=== PATIENT | female | born 1940 | race African-American/Black ===

== ENCOUNTER 2018-06-16 13:52 | Emergency (ER) | payer OTHER ==
--- NOTE | 2018-06-16 14:26 | EDPHYS ---
Physician Documentation [facility] Name: Kira Urrutia Age: 77 yrs Sex: Female : 1940 Arrival Date: 06/16/2018 Time: 13:55 Bed 13 Private MD: ED Physician Sg Stearns HPI: 06/16 14:25 This 77 yrs old Black Female presents to ER via Ambulatory with complaints of Rash. pm1 14:25 The patient's rash thought to be caused by an unknown cause. The rash is located on the pm1 mouth and neck. The rash can be described as itchy and raised. Onset: The symptoms/episode began/occurred 4 day(s) ago. Associated signs and symptoms: Pertinent positives: itching, swelling of lips, Pertinent negatives: burning sensation, difficulty breathing, fever, Pain swelling of throat, swelling of tongue, vomiting, wheezing. Severity of symptoms: in the emergency department the symptoms have improved. The patient has not experienced similar symptoms in the past. The patient has not recently seen a physician. Patient with onset of swelling to lips and itching to sides of neck and face on Wednesday. took benadryl and the swelling to her lips improved. Itching sensation to sides of face and neck have continued. Historical: - Allergies: 14:03 No Known Allergies; aa5 - Home Meds: 14:03 Nifedipine ER Oral 90 mg daily [Active]; lisinopril 5 mg Oral tab once daily [Active]; aa5 simvastatin 40 mg Oral tab once daily [Active]; aspirin 81 mg Oral TbEC 1 tab once daily [Active]; Zyrtec 10 mg Oral cap as needed [Active]; centrum silver vitamin [Active]; Os-Williams 500 + D3 oral oral [Active]; - PMHx: 14:03 Hypertension; Hyperlipidemia; Endometriosis; aa5 - PSHx: 14:03 colon resection with possible appendectomy; aa5 - Immunization history:: Flu vaccine is up to date. - Social history:: Smoking status: Patient/guardian denies using tobacco. - Ebola Screening: : No symptoms or risks identified at this time. ROS: 14:25 Constitutional: Negative for fever, chills, and weight loss, Eyes: Negative for injury, pm1 pain, redness, and discharge, ENT: Negative for injury, pain, and discharge, Neck: Negative for injury, pain, and swelling, Cardiovascular: Negative for chest pain, palpitations, and edema, Respiratory: Negative for shortness of breath, cough, wheezing, and pleuritic chest pain, Abdomen/GI: Negative for abdominal pain, nausea, vomiting, diarrhea, and constipation, Back: Negative for injury and pain, : Negative for injury, bleeding, discharge, and swelling, MS/Extremity: Negative for injury and deformity. 14:25 Neuro: Negative for headache, weakness, numbness, tingling, and seizure. 14:25 Skin: Positive for rash, of the face and neck. Exam: 14:25 Constitutional: This is a well developed, well nourished patient who is awake, alert, pm1 and in no acute distress. Head/Face: Normocephalic, atraumatic. Eyes: Pupils equal round and reactive to light, extra-ocular motions intact. Lids and lashes normal. Conjunctiva and sclera are non-icteric and not injected. Cornea within normal limits. Periorbital areas with no swelling, redness, or edema. ENT: Nares patent. No nasal discharge, no septal abnormalities noted. Tympanic membranes are normal and external auditory canals are clear. Oropharynx with no redness, swelling, or masses, exudates, or evidence of obstruction, uvula midline. Mucous membranes moist. Neck: Trachea midline, no thyromegaly or masses palpated, and no cervical lymphadenopathy. Supple, full range of motion without nuchal rigidity, or vertebral point tenderness. No Meningismus. Chest/axilla: Normal chest wall appearance and motion. Nontender with no deformity. No lesions are appreciated. Cardiovascular: Regular rate and rhythm with a normal S1 and S2. No gallops, murmurs, or rubs. Normal PMI, no JVD. No pulse deficits. Respiratory: Lungs have equal breath sounds bilaterally, clear to auscultation and percussion. No rales, rhonchi or wheezes noted. No increased work of breathing, no retractions or nasal flaring. Abdomen/GI: Soft, non-tender, with normal bowel sounds. No distension or tympany. No guarding or rebound. No evidence of tenderness throughout. Back: No spinal tenderness. No costovertebral tenderness. Full range of motion. 14:25 MS/ Extremity: Pulses equal, no cyanosis. Neurovascular intact. Full, normal range of motion. 14:25 Skin: Appearance: normal except for affected area, No current rash visible to neck or face. No lip swelling present. 14:25 Neuro: Orientation: is normal, Motor: is normal, moves all fours. Vital Signs: 14:03 BP 160 / 78; Pulse 81; Resp 16 S; Temp 99.1(TE); Pulse Ox 98% on R/A; Weight 82.55 kg aa5 (R); Height 5 ft. 5 in. (165.10 cm) (R); Pain 0/10; 14:03 Body Mass Index 30.29 (82.55 kg, 165.10 cm) aa5 MDM: 14:09 Patient medically screened. pm1 14:25 Data reviewed: vital signs. Data interpreted: Pulse oximetry: on room air is 98 %. pm1 Interpretation: normal. Counseling: I had a detailed discussion with the patient and/or guardian regarding:. 14:25 Counseling: I had a detailed discussion with the patient and/or guardian regarding: the pm1 historical points, exam findings, and any diagnostic results supporting the discharge/admit diagnosis, the need for outpatient follow up, an allergy/customer engineering specialist, a family practitioner, to return to the emergency department if symptoms worsen or persist or if there are any questions or concerns that arise at home. Administered Medications: 14:32 Drug: Pepcid 20 mg Route: PO; tw2 14:58 Follow up: Response: No adverse reaction tw2 14:32 Drug: predniSONE 60 mg Route: PO; tw2 14:58 Follow up: Response: No adverse reaction tw2 Disposition: 06/17 07:20 Co-signature as Attending Physician, Sg Stearns MD I agree with the assessment and kdr plan of care. Disposition: 06/16/18 14:26 Discharged to Home. Impression: Rash and other nonspecific skin eruption. - Condition is Stable. - Discharge Instructions: Rash. - Prescriptions for Benadryl 25 mg Oral Capsule - take 1 capsule by ORAL route every 6 hours As needed; 30 tablet. Pepcid 20 mg Oral Tablet - take 1 tablet by ORAL route every 12 hours for 10 days; 20 tablet. Medrol (Marcell) 4 mg Oral Tablets, Dose Pack - take 1 tablet by ORAL route as directed - follow package instructions; 1 packet. - Medication Reconciliation Form, Thank You Letter, Antibiotic Education, Prescription Opioid Use form. - Follow up: Emergency Department; When: As needed; Reason: Worsening of condition. Follow up: Private Physician; When: 2 - 3 days; Reason: Recheck today's complaints, Continuance of care, Re-evaluation by your physician. - Problem is new. - Symptoms have improved. Signatures: Sg Stearns MD MD [facility] Ami Pardo RN RN aa5 Daniel Garay NP [employer] MAINTENANCE SUPERVISOR pm1 Ni Welsh RN RN tw2 Corrections: (The following items were deleted from the chart) 06/16 14:59 14:26 06/16/2018 14:26 Discharged to Home. Impression: Rash and other nonspecific skin tw2 eruption. Condition is Stable. Forms are Medication Reconciliation Form, Thank You Letter, Antibiotic Education, Prescription Opioid Use. Follow up: Emergency Department; When: As needed; Reason: Worsening of condition. Follow up: Private Physician; When: 2 - 3 days; Reason: Recheck today's complaints, Continuance of care, Re-evaluation by your physician. Problem is new. Symptoms have improved. pm1
--- NOTE | 2018-06-16 14:26 | ER ---
Nurse's Notes [facility] Name: Kira Urrutia Age: 77 yrs Sex: Female : 1940 Arrival Date: 06/16/2018 Time: 13:55 Bed 13 Private MD: Diagnosis: Rash and other nonspecific skin eruption Presentation: 06/16 13:59 Presenting complaint: Patient states: rash to face and torso that began Wednesday. Pt aa5 reports itchiness. Transition of care: patient was not received from another setting of care. Onset of symptoms was May 2018. Risk Assessment: Do you want to hurt yourself or someone else? Patient reports no desire to harm self or others. Initial Sepsis Screen: Does the patient meet any 2 criteria? No. Patient's initial sepsis screen is negative. Does the patient have a suspected source of infection? No. Patient's initial sepsis screen is negative. Care prior to arrival: None. 13:59 Method Of Arrival: Ambulatory aa5 13:59 Acuity: MAAME 4 aa5 Triage Assessment: 14:59 General: Behavior is calm, cooperative, appropriate for age. tw2 Historical: - Allergies: 14:03 No Known Allergies; aa5 - Home Meds: 14:03 Nifedipine ER Oral 90 mg daily [Active]; lisinopril 5 mg Oral tab once daily [Active]; aa5 simvastatin 40 mg Oral tab once daily [Active]; aspirin 81 mg Oral TbEC 1 tab once daily [Active]; Zyrtec 10 mg Oral cap as needed [Active]; centrum silver vitamin [Active]; Os-Williams 500 + D3 oral oral [Active]; - PMHx: 14:03 Hypertension; Hyperlipidemia; Endometriosis; aa5 - PSHx: 14:03 colon resection with possible appendectomy; aa5 - Immunization history:: Flu vaccine is up to date. - Social history:: Smoking status: Patient/guardian denies using tobacco. - Ebola Screening: : No symptoms or risks identified at this time. Screenin:15 Abuse screen: Denies threats or abuse. Nutritional screening: No deficits noted. tw2 Tuberculosis screening: No symptoms or risk factors identified. Fall Risk Secondary diagnosis (15 points) impaired mobility. Assessment: 14:20 General: Appears in no apparent distress. Pain: Denies pain. Neuro: Level of tw2 Consciousness is awake, alert, obeys commands, Oriented to person, place, time, situation. Cardiovascular: Capillary refill < 3 seconds Patient's skin is warm and dry. Respiratory: Airway is patent Respiratory effort is even, unlabored, Respiratory pattern is regular, symmetrical. GI: No signs and/or symptoms were reported involving the gastrointestinal system. : No signs and/or symptoms were reported regarding the genitourinary system. EENT: No signs and/or symptoms were reported regarding the EENT system. Derm: Reports increased itching, to face and torso. Musculoskeletal: No signs and/or symptoms reported regarding the musculoskeletal system. Circulation, motion, and sensation intact. Range of motion: intact in all extremities. 14:59 Reassessment: Patient appears in no apparent distress at this time. No changes from tw2 previously documented assessment. Patient and/or family updated on plan of care and expected duration. Pain level reassessed. Patient is alert, oriented x 3, equal unlabored respirations, skin warm/dry/pink. Vital Signs: 14:03 BP 160 / 78; Pulse 81; Resp 16 S; Temp 99.1(TE); Pulse Ox 98% on R/A; Weight 82.55 kg aa5 (R); Height 5 ft. 5 in. (165.10 cm) (R); Pain 0/10; 14:03 Body Mass Index 30.29 (82.55 kg, 165.10 cm) aa5 ED Course: 13:55 Patient arrived in ED. mr 13:59 Arm band placed on. aa5 14:00 Triage completed. aa5 14:09 [facility] Gar[facility] pm1 14:09 Sg Stearns MD is Attending Physician. pm1 14:15 Ni Welsh RN is Primary Nurse. tw2 14:15 Bed in low position. Call light in reach. Pulse ox on. NIBP on. tw2 14:58 No provider procedures requiring assistance completed. Patient did not have IV access tw2 during this emergency room visit. Administered Medications: 14:32 Drug: Pepcid 20 mg Route: PO; tw2 14:58 Follow up: Response: No adverse reaction tw2 14:32 Drug: predniSONE 60 mg Route: PO; tw2 14:58 Follow up: Response: No adverse reaction tw2 Outcome: 14:26 Discharge ordered by . pm1 14:58 Discharged to home ambulatory. tw2 14:58 Condition: stable 14:58 Discharge instructions given to patient, Instructed on discharge instructions, follow up and referral plans. medication usage, Demonstrated understanding of instructions, follow-up care, medications, Prescriptions given X 3. 14:59 Patient left the ED. tw2 Signatures: Isidra Brooks mr Prado, Ami, RN RN aa5 Daniel Garay, JOSE AMMONIUM NITRATE CRYSTALLIZER pm1 Ni Welsh RN RN tw2
[2018-06-16] MEDS ORDERED: predniSONE 20 MG TAB ONE (14:40)
[2018-06-16] MEDS ORDERED: FAMOTIDINE 20 MG TAB ONE (14:40)
--- OUTSIDE RECORDS SUMMARY | 2018-06-16 14:58 | XMS REPORT | Clinical Summary ---
:1940 Author Organization [facility] Address [address] [place] [address] Care Team Providers Name Role Phone Narcisa Morris MD Primary Care Provider Allergies Active Allergy Reactions Severity Noted Date Comments No Known Drug Allergies 08/27/2015 Medications Medication Sig Dispensed Refills Start Date End Date Status aspirin (ASPIRIN LOW Take 1 0 12/31/2011 Active DOSE) 81 MG enteric capsule by coated tablet mouth daily. wb-cwi-GI-Ca-Fe-lyco Take 1 tablet 0 12/31/2011 Active pen-lutein by mouth 0.4-162-18 mg tablet daily. calcium Take 1 tablet 0 Active carbonate-vitamin D3 by mouth (CALCIUM 500 + D) daily. 500 mg-200 unit per tablet cetirizine (ZyrTEC) Take 1 tablet 90 tablet 3 03/18/2017 Active 10 MG tablet (10 mg total) by mouth daily. acetaminophen Take 325 mg 0 Active (TYLENOL) 325 MG by mouth tablet every 6 (six) hours as needed for fever. lisinopril Take 1 tablet 90 tablet 1 02/23/2018 Active (PRINIVIL,ZESTRIL) 5 (5 mg total) mg tablet by mouth daily. NIFEdipine CC Take 1 tablet 90 tablet 1 02/23/2018 Active (ADALAT CC) 90 MG 24 (90 mg total) hr tablet by mouth daily. simvastatin (ZOCOR) Take 1 tablet 90 tablet 1 02/23/2018 Active 40 MG tablet (40 mg total) by mouth daily. simvastatin (ZOCOR) Take 1 tablet 90 tablet 1 01/04/2017 06/28/2017 Discontinued 40 MG tablet (40 mg total) by mouth daily. NIFEdipine CC Take 1 tablet 90 tablet 1 01/04/2017 06/28/2017 Discontinued (ADALAT CC) 90 MG 24 (90 mg total) hr tablet by mouth daily. lisinopril Take 1 tablet 90 tablet 1 01/04/2017 06/28/2017 Discontinued (PRINIVIL,ZESTRIL) 5 (5 mg total) mg tablet by mouth daily. lisinopril Take 1 tablet 90 tablet 1 06/28/2017 02/23/2018 Discontinued (PRINIVIL,ZESTRIL) 5 (5 mg total) mg tablet by mouth daily. simvastatin (ZOCOR) Take 1 tablet 90 tablet 1 06/28/2017 02/23/2018 Discontinued 40 MG tablet (40 mg total) by mouth daily. NIFEdipine CC Take 1 tablet 90 tablet 1 06/28/2017 02/23/2018 Discontinued (ADALAT CC) 90 MG 24 (90 mg total) hr tablet by mouth daily. Active Problems Problem Noted Date TMJ (dislocation of temporomandibular joint) 05/07/2017 Overview: Patient is still having significant pain. She is having some ear pain. Decreased ROM of her jaw. She was given naproxen for 10 days--took it scheduled. Helped her knees, but not as much the jaw. Localized edema 01/04/2017 Overview: Patient is noting that she has had some increased swelling--thinks it may be related to salt intake. Improves overnight Last Assessment & Plan: Likely diet related. Watch salt and simple carbs. Epigastric fullness 01/15/2016 Last Assessment & Plan: No weight loss or early satiety. It appears to be more related to her symptoms of being anxious. However given the iron deficiency anemia, we will evaluate with EGD. Iron deficiency anemia 09/30/2015 Last Assessment & Plan: Patient with low ferritin and % saturation. She has been evaluated by hematology and there is a concern for ongoing blood loss. She doesn't have overt GI bleeding. She had a recent colonoscopy which did n't show evidence of bleeding. She hasn't had EGD. Plan for EGD with duodenal biopsy to r/o upper source of GI bleeding and celiac disease. Her hemoglobin has improved on PO iron supplement. She didn't require blood transfusion. Chronic kidney disease, stage III (moderate) 09/09/2015 Overview: Last eGFR was 62 Irregular heart rhythm 09/09/2015 Impaired glucose tolerance 09/09/2015 Seasonal allergies 09/09/2015 Osteoarthritis of knee 04/17/2013 Essential hypertension 01/14/2012 Overview: Patient is tolerating the medications well; No chest pain, shortness of breath, headache, blurry vision, or weakness. Not exercising as much. Last Assessment & Plan: Hypertension is at goal. Continue current treatment regimen. Blood pressure will be reassessed at the next regular appointment. HLD (hyperlipidemia) 12/31/2011 Encounters Date Type Specialty Care Team Description 06/15/2018 Hospital Radiology Narcisa Morris Breast cancer screening Encounter MD Ed 05/18/2018 Telephone Access Gretel Freeman Breast cancer screening MA (Primary Dx) 03/11/2018 Telephone Internal Medicine Narcisa Morris MD 02/22/2018 Telephone Internal Medicine Narcisa Morris MD 02/15/2018 Orders Only Internal Medicine Narcisa Morris Impaired glucose tolerance (Primary Dx); MD Ed Essential hypertension; Chronic kidney disease, stage III (moderate) (HCC) 02/14/2018 Telephone Internal Medicine Narcisa Morris MD 02/10/2018 Refill Internal Medicine Narcisa Morris IFG (impaired fasting glucose) (Primary Dx); MD Ed Essential hypertension; Hyperlipidemia, unspecified hyperlipidemia type 01/27/2018 Office Visit Internal Medicine Narcisa Morris Routine general medical examination at a health care facility (Primary Dx); MD Ed Need for influenza vaccination; Hyperlipidemia, unspecified hyperlipidemia type; Impaired glucose tolerance; Osteoporosis screening; Post-menopausal; Nail problem; Essential hypertension 08/26/2017 Telephone Internal Medicine Narcisa Morris Dislocation of MD Ed temporomandibular joint, sequela (Primary Dx) 06/28/2017 Refill Internal Medicine Narcisa Morris MD after 06/15/2017 Immunizations Name Dates Previously Given Next Due DTaP 03/29/2006 FLUCELVAX QUAD PF (0.5mL syringe) 04/08/2015 FLUZONE HIGH-DOSE PF 01/27/2018, 01/04/2017 Influenza (IM) Preservative Free 08/17/2014 Influenza Split 12/31/2011 Influenza Trivalent 12/27/2013, 02/12/2010, 01/23/2009 Pneumococcal Polysaccharide 04/14/2012, 01/23/2009 Family History Medical History Relation Name Comments Throat cancer Brother Liver cancer Brother Cirrhosis Brother Other Brother Hypertension Father Diabetes on dad's side Hypertension Mother Colon cancer Paternal Aunt Relation Name Status Comments Brother Brother Brother Brother Father Mother Paternal Aunt Sister Sister Sister Alive Social History Tobacco Use Types Packs/Day Years Used Date Never Smoker Smokeless Tobacco: Never Used Tobacco Cessation: Counseling Given: No Alcohol Use Drinks/Week oz/Week Comments No Sex Assigned at Date Recorded Not on file Job Start Date Occupation Industry Not on file Not on file Not on file Travel History Travel Start Travel End No recent travel history available. Last Filed Vital Signs Vital Sign Reading Time Taken Blood Pressure 148/81 01/27/2018 10:25 AM CDT Pulse 76 01/27/2018 9:58 AM CDT Temperature 36.6 C (97.9 F) 01/27/2018 9:58 AM CDT Respiratory Rate - - Oxygen Saturation 99% 01/27/2018 9:58 AM CDT Inhaled Oxygen Concentration - - Weight 82.3 kg (181 lb 6.4 oz) 01/27/2018 9:58 AM CDT Height 165.1 cm (5' 5") 01/27/2018 9:58 AM CDT Body Mass Index 30.19 01/27/2018 9:58 AM CDT Plan of Treatment Health Maintenance Due Date Last Done Comments SHINGLES VACCINES (#1) 08/12/1989 65+ PNEUMOCOCCAL VACCINE Completed 04/14/2012, 01/23/2009 PNEUMOCOCCAL POLYSACCHARIDE VACCINE Completed 04/14/2012, 01/23/2009 AGE 65 AND OVER INFLUENZA VACCINE Completed 01/27/2018, 01/04/2017, 04/08/2015, Additional history exists Procedures Procedure Name Priority Date/Time Associated Diagnosis Comments MAMMO BREAST SCREEN Routine 06/15/2018 11:24 Breast cancer Results for this TOMOSYNTHESIS AM CDT screening procedure are in BILATERAL the results section. BONE DENSITY Routine 03/14/2018 11:23 Osteoporosis Results for this AM TUBING MACHINE TENDER screening procedure are in Post-menopausal the results section. URINALYSIS, AUTOMATED Routine 02/15/2018 10:10 Essential Results for this WITH MICROSCOPY AM TUBING MACHINE TENDER hypertension procedure are in Impaired glucose the results tolerance section. Chronic kidney disease, stage III (moderate) (HCC) THYROID STIMULATING Routine 02/15/2018 10:10 Essential Results for this HORMONE AM TUBING MACHINE TENDER hypertension procedure are in Impaired glucose the results tolerance section. Chronic kidney disease, stage III (moderate) (HCC) LIPID PANEL Routine 02/15/2018 10:10 Essential Results for this AM TUBING MACHINE TENDER hypertension procedure are in Impaired glucose the results tolerance section. Chronic kidney disease, stage III (moderate) (HCC) COMPREHENSIVE Routine 02/15/2018 10:10 Essential Results for this METABOLIC PANEL AM TUBING MACHINE TENDER hypertension procedure are in Impaired glucose the results tolerance section. Chronic kidney disease, stage III (moderate) (HCC) CBC WITH PLATELET AND Routine 02/15/2018 10:10 Essential Results for this DIFFERENTIAL AM TUBING MACHINE TENDER hypertension procedure are in Impaired glucose the results tolerance section. Chronic kidney disease, stage III (moderate) (HCC) ECG 12-LEAD Routine 01/27/2018 10:11 Essential Results for this AM CDT hypertension procedure are in the results section. after 06/15/2017 Results Mammo Breast Screen Tomosynthesis Bilateral (06/15/2018 11:24 AM CDT) Narrative Performed At PROCEDURE: [facility] MAMMO BREAST SCREEN TOMOSYNTHESIS BILATERAL Computer-assisted detection was utilized for the interpretation of this exam. COMPARISON: 2017, 201601/16/2016 TECHNIQUE: Bilateral digital screening mammogram with tomosynthesis was performedand interpreted using computer-assisted detection. CLINICAL HISTORY: The patient has no current palpable breast complaints. FINDINGS: Bilateral mammogram demonstrates the breast parenchyma to beheterogeneously dense, which could obscure the detection of small masses. LEFT:No specific features of malignancy. RIGHT: No specific features of malignancy. IMPRESSION: BI-RADS Category 2: Benign. Recommend comparison with physical exam and annual screening mammography. There has been no significant interval change from prior studies. This facility is accredited by [employer] for Mammography. A negative x-ray report should not delay biopsy if a dominant or clinically suspicious mass is present. Not all cancers are identified by x-ray. [id number] Performing Organization Address City/State/Zipcode Phone Number [facility] [address] [place] [address] Bone Density (03/14/2018 11:23 AM TUBING MACHINE TENDER) Narrative Performed At EXAMINATION:BONE DENSITY [facility] CLINICAL HISTORY:Z13.820 Encounter for screening for osteoporosis, Z78.0 Asymptomatic menopausal state, osteoporosis screeningpost menopausal COMPARISON:None. The results of this study expressed as bone mineral density (BMD) were as follows: AP spine (L1-L4) *BMD: 0.923 g/cm2 *T-Score: -2.2 *Z-score: -1.6 *Percent change: No prior exam Dual Femur (Total Mean): *BMD: 0.909 g/cm2 *T-Score: -0.8 *Z-score: -0.2 *Percent change: No prior exam Left femoral neck: *BMD: 0.925 g/cm2 *T-Score: -0.8 *Z-score: 0.0 Right femoral neck: *BMD: 0.903 g/cm2 *T-Score: -1.0 *Z-score: -0.2 Dual femur FRAX: *Risk factors: None *10-year probability of fracture: 1.Major osteoporotic: 4.8% 2.Hip: 0.8% 3.Based on dual femur right neck BMD IMPRESSION:Osteopenia of the AP lumbar spine. Normal BMD of the total mean dual femur and right and left femoral neck. [facility]-[id number] A copy of this scans including a report detailing these results will follow. Note: The world health organization (WHO) has classified the patient's T-score as follows: Above (-1) as normal (-1) to (-2.5) as low (osteopenia) Below (-2.5) as abnormally low (osteoporosis, increased fracture risk) Procedure Note [facility], Radiology Results Incoming - 03/14/2018 1:25 PM TUBING MACHINE TENDER EXAMINATION: BONE DENSITY CLINICAL HISTORY: Z13.820 Encounter for screening for osteoporosis, Z78.0 Asymptomatic menopausal state, osteoporosis screening post menopausal COMPARISON: None. The results of this study expressed as bone mineral density (BMD) were as follows: AP spine (L1-L4) * BMD: 0.923 g/cm2 * T-Score: -2.2 * Z-score: -1.6 * Percent change: No prior exam Dual Femur (Total Mean): * BMD: 0.909 g/cm2 * T-Score: -0.8 * Z-score: -0.2 * Percent change: No prior exam Left femoral neck: * BMD: 0.925 g/cm2 * T-Score: -0.8 * Z-score: 0.0 Right femoral neck: * BMD: 0.903 g/cm2 * T-Score: -1.0 * Z-score: -0.2 Dual femur FRAX: * Risk factors: None * 10-year probability of fracture: 1. Major osteoporotic: 4.8% 2. Hip: 0.8% 3. Based on dual femur right neck BMD IMPRESSION: Osteopenia of the AP lumbar spine. Normal BMD of the total mean dual femur and right and left femoral neck. [id number] A copy of this scans including a report detailing these results will follow. Note: The world health organization (WHO) has classified the patient's T-score as follows: Above (-1) as normal (-1) to (-2.5) as low (osteopenia) Below (-2.5) as abnormally low (osteoporosis, increased fracture risk) Performing Organization Address City/State/Zipcode Phone Number [facility] [address] [place] [address] Urinalysis, automated with microscopy (02/15/2018 10:10 AM TUBING MACHINE TENDER) Color, UA DARK YELLOW YELLOW [facility] [place] Appearance HAZY (A) CLEAR [facility] [place] Specific gravity, urine 1.029 1.001 - 1.035 [facility] [place] pH, urine 6.0 5.0 - 8.0 [facility] [place] Glucose, urine NEGATIVE NEGATIVE [facility] [place] Bilirubin, UA NEGATIVE NEGATIVE [facility] [place] Ketones, UA TRACE (A) NEGATIVE [facility] [place] Occult blood, urine NEGATIVE NEGATIVE [facility] [place] Protein, UA 2+ (A) NEGATIVE [facility] [place] Nitrite, UA NEGATIVE NEGATIVE [facility] [place] Leukocyte esterase, UA TRACE (A) NEGATIVE [facility] [place] WBC, UA 0-5 < OR=5 /HPF [facility] [place] RBC, UA 0-2 < OR=2 /HPF [facility] [place] Squamous epithelial 6-10 (A) < OR=5 /HPF [facility] [place] cells, UA Bacteria, UA FEW (A) NONE SEEN /HPF [facility] [place] Calcium oxalate FEW NONE OR FEW /HPF [facility] [place] crystals, UA Hyaline casts, UA NONE SEEN NONE SEEN /LPF [facility] [place] Comment FEW MUCOUS THREADS [facility] [place] Specimen Urine Narrative Performed At FASTING:YES [facility] FASTING: YES Resulting Agency Comment Performing Organization Information: Site ID: [id number] Name: [facility] Address: [address] [place] [phone] Director: Monique Fatima Performing Organization Address City/[facility]/Zipcode Phone Number [phone] [address] CBC with platelet and differential (02/15/2018 10:10 AM TUBING MACHINE TENDER) WBC 3.5 (L) 3.8 - 10.8 Thousand/uL [facility] [place] RBC 3.72 (L) 3.80 - 5.10 Million/uL [facility] [place] HGB 11.9 11.7 - 15.5 g/dL [facility] [place] HCT 35.3 35.0 - 45.0 % [facility] [place] MCV 94.9 80.0 - 100.0 fL [facility] [place] MCH 32.0 27.0 - 33.0 pg [facility] [place] MCHC 33.7 32.0 - 36.0 g/dL [facility] [place] RDW 13.1 11.0 - 15.0 % [facility] [place] Platelet count 263 140 - 400 Thousand/uL [facility] [place] MPV 11.4 7.5 - 12.5 fL [facility] [place] Neutrophils, absolute 1,939 1,500 - 7,800 cells/uL [facility] [place] Lymphocytes, absolute 1,057 850 - 3,900 cells/uL [facility] [place] Monocytes, absolute 322 200 - 950 cells/uL [facility] [place] Eosinophils, absolute 112 15 - 500 cells/uL [facility] [place] Basophils, absolute 70 0 - 200 cells/uL [facility] [place] Neutrophils 55.4 % [facility] [place] Lymphocytes 30.2 % [facility] [place] Monocytes 9.2 % [employer] [facility][1] Eosinophils 3.2 % [facility] [place] Basophils + RC 2.0 % [facility] [place] Specimen Blood Narrative Performed At FASTING:YES [facility] FASTING: YES Resulting Agency Comment Performing Organization Information: Site ID: [id number] Name: [facility] Address: [address] [place] [phone] Director: Monique Fatima Performing Organization Address City/[facility]/Zipcode Phone Number [phone] [address] Thyroid stimulating hormone (02/15/2018 10:10 AM TUBING MACHINE TENDER) TSH 2.07 0.40 - 4.50 mIU/L [facility] [place] Specimen Blood Narrative Performed At FASTING:YES [facility] FASTING: YES Resulting Agency Comment Performing Organization Information: Site ID: [id number] Name: [facility] Address: [address] [place] [phone] Director: Moinque Fatima Performing Organization Address [facility] Phone Number [phone] [address] Lipid panel (02/15/2018 10:10 AM TUBING MACHINE TENDER) Cholesterol, total 171 <200 mg/dL [facility] [place] HDL cholesterol 86 >50 mg/dL [facility] [employer] [facility][1] Triglycerides 65 <150 mg/dL [employer] [facility][1] LDL cholesterol 71 mg/dL (calc) [employer] [facility] calculated Comment: [place] Reference range: <100 Desirable range <100 mg/dL for primary prevention; <70 mg/dL for patients with CHD or diabetic patients with > or=2 CHD risk factors. LDL-C is now calculated using the Sandrita calculation, which is a validated novel method providing better accuracy than the Friedewald equation in the estimation of LDL-C. Jose SS et al. REBECCA. 2013;310(19): 9296-0335 (http://education.[employer]/faq/NCY404) Cholesterol/HDL ratio 2.0 <5.0 (calc) [employer] [facility][1] Non-HDL cholesterol 85 <130 mg/dL [facility] Comment: (calc) [place] For patients with diabetes plus 1 major ASCVD risk factor, treating to a non-HDL-C goal of <100 mg/dL (LDL-C of <70 mg/dL) is considered a therapeutic option. Specimen Blood Narrative Performed At FASTING:YES [facility] FASTING: YES Resulting Agency Comment Performing Organization Information: Site ID: [id number] Name: [facility] Address: [address] [place] [phone] Director: Monique Fatima Performing Organization Address [facility] Phone Number [phone] [address] Comprehensive metabolic panel (02/15/2018 10:10 AM TUBING MACHINE TENDER) Glucose 91 65 - 99 mg/dL [facility] Comment: [place] Fasting reference interval BUN, whole blood 17 7 - 25 mg/dL [facility] [place] Creatinine 0.93 0.60 - 0.93 [facility] Comment: mg/dL [place] For patients >49 years of age, the reference limit for Creatinine is approximately 13% higher for people identified as -Greek. EGFR Non-Afr. Greek 59 (L) > OR=60 [facility] mL/min/1.73m2 [place] EGFR 68 > OR=60 [facility] mL/min/1.73m2 [place] BUN/creatinine ratio NOT APPLICABLE 6 - 22 (calc) [facility] [place] Sodium 141 135 - 146 mmol/L [facility] [place] Potassium 4.2 3.5 - 5.3 mmol/L [facility] [place] Chloride 105 98 - 110 mmol/L [facility] [place] CO2 29 20 - 32 mmol/L [facility] [place] Calcium 9.7 8.6 - 10.4 mg/dL [facility] [place] Protein 7.5 6.1 - 8.1 g/dL [facility] [place] Albumin, S 4.3 3.6 - 5.1 g/dL [facility] [place] Globulin, total 3.2 1.9 - 3.7 g/dL [facility] (calc) [place] Albumin/globulin ratio 1.3 1.0 - 2.5 (calc) [facility] [place] Total bilirubin 0.4 0.2 - 1.2 mg/dL [facility] [place] Alkaline phosphatase 80 33 - 130 U/L [facility] [place] AST 22 10 - 35 U/L [facility] [place] ALT 18 6 - 29 U/L [facility] [place] Specimen Blood Narrative Performed At FASTING:YES [facility] FASTING: YES Resulting Agency Comment Performing Organization Information: Site ID: [id number] Name: [facility] Address: [address] [place] [phone] Director: Monique Fatima Performing Organization Address City/State/Zipcode Phone Number [phone] [place] [phone] ECG 12 lead (01/27/2018 10:11 AM CDT) Ventricular rate 61 [facility] Atrial rate 61 [facility] TX interval 180 [facility] QRSD interval 84 [facility] QT interval 410 [facility] QTC interval 412 [facility] P axis 1 72 [facility] QRS axis 1 -3 [facility] T wave axis 23 [facility] EKG impression Normal sinus rhythm-Voltage criteria for left ventricular hypertrophy-Inferior infarct , age undetermined-Abnormal ECG-In automated comparison with ECG of 29-JUL-2013 09:03,-premature ventricular comple [facility] xes are no longer present- Performing Organization Address City/State/Zipcode Phone Number [facility] [address] [place] [address] after 06/15/2017 Insurance Payer Benefit Plan / Group Subscriber ID Type Phone Address [facility] xxxxxxxxxxx Advance Directives Patient has advance care planning documents on file. For more information, please contact:Jesus Ontiveros[address] [place] [address]
== END 2018-06-16 14:59 | disposition home or self-care (01) ==
LOC: ER 13:52
DX: R21 Rash and other nonspecific skin eruption (principal); I10 Essential (primary) hypertension; E78.5 Hyperlipidemia, unspecified; Z79.82 Long term (current) use of aspirin
CPT/HCPCS: 99283; J7512